=== PATIENT | female | born 1975 | race Caucasian/White ===

== ENCOUNTER 2023-03-23 10:21 | Outpatient (REF) | payer MEDICAID, SELFPAY ==
[2023-03-23 15:14] LABS: Estimated Average Glucose 126 mg/dL
[2023-03-23 15:21] LABS: Alanine Aminotransferase 50 U/L (0-31); Albumin Level 3.9 g/dL (3.5-5.0); Alkaline Phosphatase 100 U/L (39-117); Anion Gap 13 (12-20); Aspartate Amino Transferase 33 U/L (5-31); Bilirubin Direct 0.2 mg/dL (0.0-0.5); Bilirubin Total 0.5 mg/dL (0.0-1.0); Blood Urea Nitrogen 15 mg/dL (9-16); Calcium 9.3 mg/dL (8.4-10.2); Carbon Dioxide 22 mmol/L (22-29); Chloride 108 mmol/L (96-108); Cholesterol 132 mg/dL (<200); Estimated Glomerular Filt Rate > 60; Glucose Fasting 97 mg/dL (60-99); HDL Cholesterol 40 mg/dL (>40); LDL Cholesterol Calculated 73 mg/dL (<100); Potassium 3.7 mmol/L (3.3-5.1); Sodium 139 mmol/L (135-145); Total Protein 7.3 g/dL (6.5-8.0); Triglycerides 96 mg/dL (<150)
[2023-03-23 15:29] LABS: TSH reflex Free T4 1.76 uIU/mL (0.32-4.0); Vitamin D 25-OH Total 32.4 ng/mL (>30)
== END 2023-03-23 10:22 | disposition home or self-care (01) ==
LOC: HO.CHCLDS 10:21
PROVIDERS: Visit Provider Pediatrics
DX: I10 Essential (primary) hypertension (principal); E66.9 Obesity, unspecified; N20.0 Calculus of kidney; F43.20 Adjustment disorder, unspecified
CPT/HCPCS: 36415; 80048; 80061; 80076; 82306; 83036; 84443

== ENCOUNTER 2023-05-27 15:30 | Outpatient (REF) | payer MEDICAID, SELFPAY ==
[2023-05-27 18:46] LABS: Influenza A PCR NEGATIVE (Negative); Influenza B PCR NEGATIVE (Negative); Resp Syncy Virus RNA Qual PCR NEGATIVE (Negative); SARS COV2 PCR INHOUSE NEGATIVE (Negative)
== END 2023-05-27 15:31 | disposition home or self-care (01) ==
LOC: HO.CHCLNP 15:30
PROVIDERS: Visit Provider Family Medicine
DX: R05.9 Cough, unspecified (principal); Z11.52 Encounter for screening for COVID-19
CPT/HCPCS: 0241U

== ENCOUNTER 2023-09-29 08:17 | Outpatient (REF) | payer MEDICAID, SELFPAY ==
--- NOTE | 2023-09-29 08:23 | EMG_ITS ---
Bilateral median and ulnar motor and sensory studies were performed. Bilateral radial sensory studies and bilateral median and lateral antecubital sensory studies were performed. Needle examination was performed. IMPRESSION: 1. [id number] bilateral median neuropathy across carpal tunnel. 2. There is also suggestion of mild bilateral lower to mid cervical radiculopathy. MD LETI Nicholson/JUAN LUIS / [phone]
== END 2023-09-29 08:18 | disposition home or self-care (01) ==
LOC: HO.NEURO 08:17
PROVIDERS: PCP Pediatrics; Visit Provider Nurse Practitioner Family
DX: G56.03 Carpal tunnel syndrome, bilateral upper limbs (principal)
CPT/HCPCS: 95886; 95913

== ENCOUNTER 2023-10-05 11:19 | Outpatient (AMB) | payer MEDICAID, SELFPAY ==
--- NOTE | 2023-10-05 11:21 | MHC.OFFVIS ---
Vital Signs 10/05/23 11:23 Height 5 ft 2 in Weight 226 lb BMI 41.3 Intake Visit Reasons: ROOFER GYPSUM - Bilateral CTS Intake Note: Julia a 48 year old female, right hand dominant, who presents today as a new patient for an evaluation of bilateral hands, ? bilateral CTS. Patient reports pain began about 7 years ago but it has worsened since August,. Patient was given wrist braces by PCP but she is not using them now. Reports tingling and numbness in some fingers that wake her up at night. No prior surgery or injury. EMG done 09/29/23. Manager Employment Required: No Accompanied by: Self / Same As Patient Allergies diphenhydramine [From Benadryl] Allergy (Severe, Verified 10/05/23 11:24) Hallucinations penicillin G Allergy (Mild, Verified 10/05/23 11:24) Rash HPI HPI ROOFER GYPSUM - Bilateral CTS: Details: 48-year-old right hand dominant female who presents to the office today for evaluation of bilateral hands. She states she has pain in her bilateral hands for 7 years which has been worsening since August 2022. She was seen by her PCP who gave her wrist braces however she has not been using them. Her right hand is worse than her left. She currently states she has pain, numbness and tingling in her hands which is aggravated at night. She also gets an intermittent sharp pain in her hands and frequently drop things due to weakness. She denies any injury and has not had any surgery in the past. 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 [facility] Medical History (Updated 10/05/23 @ 13:11 by Carol Fabian PA-C) History of kidney stones Social History (Updated 10/05/23 @ 11:26 by SRIDEVI Cehw) Current occupation: rt handed Review of Systems Const All systems reviewed & are unremarkable except as noted in HPI and below Physical Exam Vital Signs: BMI result Body Mass Index 41.3 Const General: cooperative, healthy appearing, comfortable, no acute distress, well developed and alert Orientation/consciousness: patient oriented x3 HEENT Head: Yes normal to inspection, Yes normocephalic and Yes atraumatic Eyes General: appearance normal, both eyes and all related structures Neck Neck: Yes normal visual inspection and Yes no lymphadenopathy Resp Effort & Inspection: normal respiratory effort and able to speak in complete sentences Cardio Rate: regular rate Peripheral pulses: Peripheral pulses 2+ throughout GI Inspection: Yes normal to inspection Palpation (GI): Soft to palpation Skin General skin exam: no rashes or lesions noted Lesions: no lesions Rashes: no rashes Neuro General: patient oriented x3 Extrem Other: Bilateral wrist: Normal to inspection. Tenderness over the carpal canal. Numbness and tingling over the median nerve distribution of the right hand. Able to make a full fist and fully extend all fingers. Positive Tinel's bilaterally. Psych Appearance: grossly normal Mental Status: mental status grossly normal Results Reviewed Results Reviewed: IMPRESSION: 1. [id number] bilateral median neuropathy across carpal tunnel. 2. There is also suggestion of mild bilateral lower to mid cervical radiculopathy. Assessment & Plan Assessment & Plan (1) Bilateral carpal tunnel syndrome: Code(s): G56.03 - Carpal tunnel syndrome, bilateral upper limbs Category: Medical Plan We discussed options which include conservative vs operative treatment. Since the patient has been symptomatic for several months and it is impacting their daily life, the decision was made to undergo right carpal tunnel release. We discussed risk, benefits and alternatives. Risk including but not limited to infection, weakness, stiffness, ongoing numbness or tingling. The patient does understand all this and would like to proceed with right carpal tunnel release with Dr. Diaz. They will be booked accordingly. Patient Instructions: Scribed for Carol Fabian PA-C, by Bakari Bess medical records library professor, on 10/05/2023 at 11:30 AM EST. I, Carol Fabian PA-C, have personally reviewed and agree with the information entered by the scribe. Coding Level of Care Code New Pt Level 4 (06444) Diagnoses Bilateral carpal tunnel syndrome G56.03
[2023-10-05 11:23] VITALS: BMI 41.3
== END 2023-10-05 12:00 | disposition home or self-care (01) ==
PROVIDERS: PCP Pediatrics; Visit Provider Physician Assistant
DX: G56.03 Carpal tunnel syndrome, bilateral upper limbs (principal)
CPT/HCPCS: 99204

== ENCOUNTER → 2023-10-05 11:19 | Outpatient (BNVA) | payer MEDICAID, SELFPAY | PROVIDERS: PCP Pediatrics; Visit Provider Physician Assistant | DX: G56.03 Carpal tunnel syndrome, bilateral upper limbs (principal) | CPT/HCPCS: 99212 ==

== ENCOUNTER 2023-11-12 13:47 | Day surgery (SDC) | payer MEDICAID, SELFPAY ==
--- NOTE | 2023-11-12 12:42 | W.PM.OPN ---
Operative Note Operative Note Date of Service: 11/12/23 Narrative: Preop diagnosis: 1. Right Carpal tunnel syndrome Postop diagnosis: same Procedure: 1. Right Carpal tunnel release Surgeon: Susan Diaz MD Anesthesia: local block using 1% lidocaine with epinephrine Findings: Thickened transverse carpal ligament. EBL: Less than 5 mL Specimens: None Complications: None Disposition: Brought to recovery room in stable condition Plan: Follow-up for 10-14 days for wound check and suture removal Indications: The patient is 48 years old, with right carpal tunnel syndrome that has been unresponsive to nonoperative management. The risks and benefits of operative treatment including but not limited to risk of damage to blood vessels, nerves, tendons, infection, persistent pain, persistent symptoms, or possible need for additional surgery were discussed with the patient and the patient wishes to proceed with surgery. Procedure: Once consent was obtained a local block was performed using a combination of 1% lidocaine with epinephrine. The patient was then brought back to the operating suite and placed on the operative table in supine position. The right upper extremity was prepped and draped in a standard surgical fashion. Once assured that we had a good block, a 2.0 cm longitudinal incision was made centered over the carpal tunnel. The incision was made through the skin to the subcutaneous tissues using a #15 blade. Dissection was made down to the level of the transverse carpal ligament with care being taken to protect the palmar cutaneous nerve. Once the transverse carpal ligament was clearly visualized, a longitudinal incision was made in the transverse carpal ligament 1st using a #15 blade, then using tenotomy scissors under direct visualization. Care was taken to look for and protect the motor branch of the median nerve when seen in this area. Once satisfied with our carpal tunnel release the wound was copiously irrigated with normal saline and hemostasis was obtained with a brief period of local pressure. The skin edges were reapproximated with some 5.0 nylon suture material and a sterile dressing was applied. The patient appears to have tolerated the procedure well and with no complications. All digits were well vascularized at the conclusion of the case.
[2023-11-12 14:24] VITALS: BMI 41.3
[2023-11-12 14:36] VITALS: BP 150/95; PULSE 89; RESP 18; TEMP 36.1; O2SAT 95
--- NOTE | 2023-11-12 15:13 | MHC.SHP ---
Pre-Procedural Eval Section A - 24 Hr Update-Section A only Date of Service: 11/12/23 The patient is an INPATIENT: No Changes since office visit: No Cold of Flu in the past 2 weeks, No New Medical Problems, No Changes in Medication and No Patient answered all questions The patient has been examined within 24 hours of the surgical procedure. The History & Physical has been completed within 30 days and I have reviewed it.: Yes Section B - Complete if H&P > 30 days Chief Complaint: Carpal tunnel syndrome, right upper limb Allergies: Allergies Allergy/AdvReac Type Severity Reaction Status Date / Time diphenhydramine Allergy Severe Hallucinati Verified 11/12/23 14:34 [From Benadryl] ons penicillin G Allergy Mild Rash Verified 11/12/23 14:34 Exam Exam Comment: Right carpal tunnel syndrome Plan Diagnosis/Plan: Unchanged I have reviewed the history and physical and performed a pertinent physical examination on my patient. No changes have occurred unless specified. Time Spent With Patient Time: Total time managing care of this patient today ____ minutes.
[2023-11-12 17:30] VITALS: BP 137/90; PULSE 80; RESP 18; TEMP 36.1; O2SAT 97
== END 2023-11-12 17:45 | disposition home or self-care (01) ==
PROVIDERS: PCP Pediatrics; Visit Provider Orthopaedic Surgery
PROC: (CPT 64721; principal; 2023-11-12 15:20)
DX: G56.01 Carpal tunnel syndrome, right upper limb (principal); Z88.0 Allergy status to penicillin; Z88.8 Allergy status to other drugs, medicaments and biological substances
CPT/HCPCS: 64721; J0171

== ENCOUNTER → 2023-11-12 13:47 | Outpatient (BNV) | payer MEDICAID, SELFPAY | PROVIDERS: PCP Pediatrics; Visit Provider Orthopaedic Surgery | DX: G56.01 Carpal tunnel syndrome, right upper limb (principal) | CPT/HCPCS: 64721 ==

== ENCOUNTER 2023-11-25 14:15 | Outpatient (AMB) | payer MEDICAID, SELFPAY ==
--- NOTE | 2023-11-25 14:58 | MHC.OFFVIS ---
Vital Signs 11/25/23 15:13 Height 5 ft 2 in Weight 226 lb BMI 41.3 Intake Visit Reasons: PO RT CTR 11/12/23 AR Intake Note: Julia a 48 year old female who presents today for a post operative right CTR on 11/12/23 with AR. Sutures removed and steri-strips applied. Patient reports a recent fall when she slipped in her bathroom and grabbed onto the railing with her right hand. States numbness in her whole hand and all her fingers. Allergies diphenhydramine [From Benadryl] Allergy (Severe, Verified 11/25/23 15:12) Hallucinations penicillin G Allergy (Mild, Verified 11/25/23 15:12) Rash HPI HPI PO RT CTR 11/12/23 AR: Details: Patient is a 48-year-old female who presents for 2 week postop status post right carpal tunnel release on 11/12/2023. The patient reports that she is still experiencing some numbness and tingling in the median nerve distribution of her right hand, but this has improved greatly since time of surgery. However, the patient also reports that she has a known cervical spine ?pinched nerve?, and was told that this could mimic symptoms of carpal tunnel. The patient reports that her hand is very stiff, and expresses concern that she ?babied the hand too much while recovering.? Patient reports that it is extremely difficult to flex her fingers in her right hand. She reports that she kept her hand on a sling most of the time over the past 2 weeks, and then she also wrapped her forearm and hand in an Sunny wrap. The patient also reports that she is having some pain and stiffness in her wrist. [facility] Medical History (Updated 11/25/23 @ 15:18 by GILBERTO Valencia) History of kidney stones Social History Current occupation: rt handed Review of Systems Const All systems reviewed & are unremarkable except as noted in HPI and below Physical Exam Vital Signs: BMI result Body Mass Index 41.3 Const Other: Patient is alert, oriented, cooperative, and in no acute distress HEENT Head: Yes normocephalic and Yes atraumatic Resp Effort & Inspection: normal respiratory effort and able to speak in complete sentences Cardio Jugular venous distension: no JVD Neuro General: gait normal Cognition (Neuro): normal cognition Extrem Other: Patient is alert, oriented, and in no acute distress. Neuro: Patient reports that she has slightly diminished sensation in the median nerve distribution of the right hand, however sensation is greatly improved as compared to preoperatively. Ulnar, radial nerves motor and sensory intact and sensation is normal to the tips of all digits. Vascular: Cap refill brisk Pain: Patient reports pain when she attempts to flex her fingers, as well as slight, dull pain in the wrist ROM: With encouragement, patient is eventually able to make a fist and extend her fingers, but was initially only able to flex fingers very slightly. Patient reports that, each successive time we passively brought her hand to a fist it became easier. Skin: No lacerations or abrasions. General: No ecchymosis, erythema, or evidence of infection. Psych: Appears grossly normal Affect normal Attitude cooperative Psych Appearance: grossly normal Mental Status: mental status grossly normal Assessment & Plan Assessment & Plan (1) Right carpal tunnel syndrome: Code(s): G56.01 - Carpal tunnel syndrome, right upper limb Category: Medical (2) Bilateral carpal tunnel syndrome: Code(s): G56.03 - Carpal tunnel syndrome, bilateral upper limbs Category: Medical Plan 1. Carpal tunnel syndrome, right, s/p carpal tunnel release on 11/12/23 Patient doing well, with good symptom improvement postoperatively and adequate wound healing at the incision site. Patient referred to Occupational therapy for range of motion and hand strengthening due to large degree of stiffness present. Patient advised to try to bring right hand to a tight fist at least once per hour in order to decrease stiffness and increase range of motion. Patient also advised that when numbness is severe such as hers, It can take weeks to months in order for sensation to return Patient amenable to this. 2. Carpal tunnel syndrome, left Patient will follow-up when she feels that her right hand is suitably functional to discuss left carpal tunnel release. Orders: Orders OT Evaluation and Treatment 11/25/23 G56.01 - Carpal tunnel syndrome, right upper limb Coding Level of Care Code Global (02165) Diagnoses Right carpal tunnel syndrome G56.01 Bilateral carpal tunnel syndrome G56.03
[2023-11-25 15:13] VITALS: BMI 41.3
== END 2023-11-25 16:58 | disposition home or self-care (01) ==
PROVIDERS: PCP Pediatrics
DX: G56.01 Carpal tunnel syndrome, right upper limb (principal); G56.03 Carpal tunnel syndrome, bilateral upper limbs
CPT/HCPCS: 99024

== ENCOUNTER → 2023-11-25 14:15 | Outpatient (BNVA) | payer MEDICAID, SELFPAY | PROVIDERS: PCP Pediatrics | DX: G56.03 Carpal tunnel syndrome, bilateral upper limbs (principal); Z48.02 Encounter for removal of sutures | CPT/HCPCS: 99212 ==

== ENCOUNTER 2023-12-15 13:00 | Outpatient (RCR) | payer MEDICAID, SELFPAY ==
--- NOTE | 2023-12-09 16:22 | MHC.OT.EP ---
[address] [phone] Occupational Therapy Plan of Care Patient Name: Julia Ragland Date of Evaluation: 12/09/23 Diagnosis: Pain Location: voalar side of wrist/ FA Pain Score: 4 Pain Scale Used: Numeric (0 - 10) Aggravating Factors: pain is not constant but radiates to her elbow from her wrist w/ certain movements pt could not identify which movements Alleviating Factors: Assessment: Pt is a 48 yr. old R hand dominant female who had CTR surgery of her R wrist / hand on 11/11. She did not use her affected hand and held it in a sling (self directed) for 2 weeks until her stitches were removed. She saw the PA for a follow and pt had Limited ROM of her wrist and digits. She is aware she was babying her hand which has increased her pain and decreased her ROM. Pt reports difficulty writing, carrying items, holding her phone, due to pain and lack of function. The PA instructed her to passively make a fist which pt has been doing. She was referred to skilled OT therapy for increased ROM And functional use of her dominant hand Pt has CTS in her L hand/ wrist as well and will be having surgery in the fall (hopefully) Frequency and Duration: The patient will be seen Short Term Goals: SEE BELOW Fpc Goals: Pt will make a composite fist Pt will have pain free AROM of her wrist in extension to 50 Pt will report sing her R hand to carry LIGHT grocery bags w/ out difficulty Pt will be complaint w/ her HEP Treatment Plan: Therapeutic Exercise Therapeutic Activity Home Exercise Program Splinting Neuro Re-ed Patient Education Desensitization/Sensory Re-ed Edema Control ADL Training Ultrasound NMES Iontophoresis Paraffin Fluidotherapy MHP Cold Packs Joint Mobilization Soft Tissue Mobilization Kinesiotaping Other (see comments) Electronically Signed By: Sindy Walker OTR/L Please Sign and return to therapist. Thank you once again for your referral.
== END 2023-12-25 13:12 | disposition home or self-care (01) ==
LOC: HO.OT 13:00
PROVIDERS: PCP Pediatrics
DX: G56.01 Carpal tunnel syndrome, right upper limb (principal)
CPT/HCPCS: 97110; 97140; 97166; 97535

== ENCOUNTER 2024-08-15 18:25 | Outpatient (REF) | payer MEDICAID, SELFPAY ==
[2024-08-24 12:56] LABS: HPV Genotype 16 Negative (Negative); HPV Genotype 18 Negative (Negative); HPV High Risk Negative (Negative)
== END 2024-08-15 18:26 | disposition home or self-care (01) ==
LOC: HO.CHCLNP 18:25
PROVIDERS: Visit Provider Pediatrics
DX: Z01.419 Encounter for gynecological examination (general) (routine) without abnormal findings (principal); R87.610 Atypical squamous cells of undetermined significance on cytologic smear of cervix (ASC-US); Z11.51 Encounter for screening for human papillomavirus (HPV)
CPT/HCPCS: 87626; 88175

== ENCOUNTER 2024-08-16 09:12 | Outpatient (REF) | payer MEDICAID, SELFPAY ==
[2024-08-16 14:15] LABS: MANUAL DIFF FLAG NO
[2024-08-16 14:25] LABS: Basophils Absolute Auto 0.1 X10*3/uL (0.0-0.2); Basophils Percent Auto 0.9 % (0-2); Eosinophils Absolute Auto 0.2 X10*3/uL (0.0-0.4); Hematocrit 41.3 % (37.0-47.0); Hemoglobin 13.1 g/dl (12.0-16.0); Imm Gran Abs Auto 0.04 X10*3/uL (0.00-0.03); Imm Gran Pct Auto 0.7 % (0.0-0.4); Lymphocytes Absolute Auto 1.7 X10*3/uL (1.2-4.9); Lymphocytes Percent Auto 30.1 % (20-40); Mean Corpuscular HGB Conc 31.7 g/dl (31.0-35.0); Mean Corpuscular Hemoglobin 24.3 pg (27.0-33.0); Mean Corpuscular Volume 76.6 fL (80.0-98.0); Mean Platelet Volume 10.5 fL (9.4-12.3); Monocytes Absolute Auto 0.5 X10*3/uL (0.1-1.2); Neutrophils Absolute Auto 3.2 x10*3/uL (2.0-8.3); Neutrophils Percent Auto 57.3 % (45-73); Platelet Count 298 X10*3/uL (160-400); Red Blood Count 5.39 X10*6/uL (4.20-5.50); Red Cell Distribution Width 15.9 % (11.0-16.0); White Blood Count 5.6 X10*3/uL (4.8-10.8)
[2024-08-16 14:51] LABS: Alanine Aminotransferase 63 U/L (0-31); Albumin Level 3.9 g/dL (3.5-5.0); Alkaline Phosphatase 108 U/L (39-117); Anion Gap 11 (12-20); Aspartate Amino Transferase 50 U/L (5-31); Bilirubin Direct 0.2 mg/dL (0.0-0.5); Bilirubin Total 0.4 mg/dL (0.0-1.0); Blood Urea Nitrogen 15 mg/dL (9-16); Calcium 9.2 mg/dL (8.4-10.2); Carbon Dioxide 25 mmol/L (22-29); Chloride 111 mmol/L (96-108); Cholesterol 138 mg/dL (<200); Estimated Glomerular Filt Rate > 60; Glucose Random 96 mg/dL (60-115); HDL Cholesterol 45 mg/dL (>40); LDL Cholesterol Calculated 75 mg/dL (<100); Potassium 3.7 mmol/L (3.3-5.1); Sodium 143 mmol/L (135-145); Total Protein 7.5 g/dL (6.5-8.0); Triglycerides 91 mg/dL (<150)
[2024-08-16 15:13] LABS: Microalbum/Creatinine Ratio Ur 16.1 ug/mg cr (<30)
== END 2024-08-16 09:13 | disposition home or self-care (01) ==
LOC: HO.CHCLDS 09:12
PROVIDERS: Visit Provider Pediatrics
DX: E11.9 Type 2 diabetes mellitus without complications (principal)
CPT/HCPCS: 36415; 80048; 80061; 80076; 82043; 82570; 84443; 85025